=== PATIENT | female | born 1955 | race Caucasian/White ===

== ENCOUNTER 2019-03-12 05:54 | Day surgery (SDC) | payer OTHER ==
[2019-03-12] MEDS: SOD CHLORIDE 0.9% 1,000 ML IV (06:44)
[2019-03-12] MEDS: MOXIFLOXACIN 0.5% 3 ML OPH OPER (06:44)
[2019-03-12] MEDS: CYCLOPENTOLATE/PHENYLEPH 2 ML OPH OPER (06:44)
[2019-03-12] MEDS: DICLOFENAC 0.1% 2.5 ML OPH OPER (06:44)
[2019-03-12] MEDS: TROPICAMIDE 1% 15 ML OPH OPER (06:44)
[2019-03-12] MEDS: CEFAZOLIN 1 GM INJ (07:33)
[2019-03-12] MEDS: DEXAMETHASONE 4 MG/ML 1 ML INJ (07:33)
[2019-03-12] MEDS: CARBACHOL 0.01% 1.5 ML OPH INJ (07:33)
[2019-03-12] MEDS ORDERED: hydrALAzine 20 MG INJ IV (08:00)
[2019-03-12] MEDS ORDERED: LABETALOL HCL 20MG INJ IV (08:00)
[2019-03-12] MEDS ORDERED: PROPOFOL 100 ML (08:02)
[2019-03-12] MEDS ORDERED: MIDAZOLAM 1 MG/ML 2 ML INJ (08:02)
[2019-03-12] MEDS ORDERED: LIDOCAINE 4% (MPF) 5 ML INJ (08:25)
[2019-03-12] MEDS ORDERED: NA HYALURONATE/CHONDROITIN 0.5 ML SYG (08:25)
== END 2019-03-12 09:25 | disposition home or self-care (01) ==
LOC: SDS 05:54
DX: H25.12 Age-related nuclear cataract, left eye (principal); I10 Essential (primary) hypertension; J45.909 Unspecified asthma, uncomplicated
CPT/HCPCS: 66984

== ENCOUNTER 2019-05-07 06:20 | Day surgery (SDC) | payer OTHER ==
[2019-05-07] MEDS: MOXIFLOXACIN 0.5% 3 ML OPH OPER (07:28)
[2019-05-07] MEDS: SOD CHLORIDE 0.9% 1,000 ML IV (07:28)
[2019-05-07] MEDS: CYCLOPENTOLATE/PHENYLEPH 2 ML OPH OPER (07:28)
[2019-05-07] MEDS: TROPICAMIDE 1% 15 ML OPH OPER (07:28)
[2019-05-07] MEDS: DICLOFENAC 0.1% 2.5 ML OPH OPER (07:28)
[2019-05-07] MEDS: CEFAZOLIN 1 GM INJ (08:17)
[2019-05-07] MEDS: DEXAMETHASONE 4 MG/ML 1 ML INJ (08:17)
[2019-05-07] MEDS: CARBACHOL 0.01% 1.5 ML OPH INJ (08:17)
[2019-05-07] MEDS ORDERED: NA HYALURONATE/CHONDROITIN 0.5 ML SYG (08:17)
[2019-05-07] MEDS ORDERED: LIDOCAINE 4% (MPF) 5 ML INJ (08:17)
[2019-05-07] MEDS ORDERED: FENTAnyl 50 MCG/ML VIAL IV (08:30)
[2019-05-07] MEDS ORDERED: HYDROmorphONE 1 MG/5 ML IV SYRINGE IV ×3 (08:30)
[2019-05-07] MEDS ORDERED: PROCHLORPERAZINE 10 MG INJ IV (08:30)
[2019-05-07] MEDS ORDERED: OXYCODONE/ACETAMINOPHEN (5/325) TAB PO (08:30)
[2019-05-07] MEDS ORDERED: MEPERIDINE 25 MG INJ IV (08:30)
[2019-05-07] MEDS ORDERED: DIPHENHYDRAMINE 50 MG INJ IV (08:30)
[2019-05-07] MEDS ORDERED: PROPOFOL 20 ML (08:34)
[2019-05-07] MEDS ORDERED: LIDOCAINE 2% (SDV) 5 ML INJ (08:34)
[2019-05-07] MEDS ORDERED: FENTAnyl 50 MCG/ML VIAL (08:35)
[2019-05-07] MEDS ORDERED: MIDAZOLAM 1 MG/ML 2 ML INJ (08:35)
[2019-05-07] MEDS: ONDANSETRON 4 MG INJ IV (09:36)
== END 2019-05-07 10:06 | disposition home or self-care (01) ==
LOC: SDS 06:20
DX: H25.11 Age-related nuclear cataract, right eye (principal)
CPT/HCPCS: 66984